=== PATIENT | female | born 1975 | race Caucasian/White ===

== ENCOUNTER → 2020-07-25 | Outpatient (CLI) | payer BC ==
--- NOTE | 2020-07-25 16:22 | US ---
EXAMINATION TYPE: US pelvic complete plus Doppler DATE OF EXAM: 07/25/2020 COMPARISON: MRI pelvis CLINICAL HISTORY: 44-year-old female N94.6 Dysmenorrhea, unspecified. Irregular and Painful menses x 6 months; ; tubal ligation TECHNIQUE: Transvaginal (TV) and Transabdominal (TA) . Transabdominal sonographic images of the pel vis were acquired. Transvaginal sonographic images were medically necessary to better assess the fol lowing anatomy: endometrium. Color Doppler and spectral waveform analysis of the ovarian arteries and veins. Date of LMP: 07/23/2020 FINDINGS: EXAM MEASUREMENTS: Uterus: 8.7 x 5.2 x 4.6 cm Endometrial Stripe: 0.5 cm Right Ovary: 3.3 x 2.8 x 1.2 cm Left Ovary: 2.6 x 1.8 x 1.4 cm 1. Uterus: Retroverted; small 6 mm cervical nabothian cyst. 2. Endometrium: thickness is wnl for Day 3 LMP; couple of echogenic foci imaged in upper endometrium measuring up to 3 mm, nonspecific. 3. Right Ovary: multiple follicles with largest simple follicle = 0.5 x 0.6 x 0.5cm; a couple echoge dylan foci measure up to 3 mm, possible calcification. 4. Left Ovary: multiple follicles; involuting follicle seen = 1.1 x 1.0 x 0.6cm; simple follicular c yst seen = 0.8 x 0.7 x 0.6cm. Spectral, color and waveform Doppler imaging shows good arterial and venous flow within the ovaries ; there is no evidence for ovarian torsion. 5. Bilateral Adnexa: wnl 6. Posterior cul-de-sac: wnl IMPRESSION: 1. Retroverted uterus. A couple punctate echogenic foci along the upper endometrium could represent c alcifications related to prior instrumentation or infection. 2. Normal physiologic change in both ovaries. 3. No sonographic evidence for ovarian torsion on either side.
== END | disposition home or self-care (01) ==
LOC: RADUSWWP 14:45
PROVIDERS: ATTEND Family Medicine
DX: R93.89 Abnormal findings on diagnostic imaging of other specified body structures (principal); N85.4 Malposition of uterus
CPT/HCPCS: 76830; 76856